=== PATIENT | male | born 1975 | race Caucasian/White ===

== ENCOUNTER 2019-07-01 13:24 | Emergency (ER) | payer SELFPAY ==
[2019-07-01] MEDS ORDERED: CYCLOBENZAPRINE HCL 10 MG TAB PO ONE (13:50)
[2019-07-01] MEDS ORDERED: KETOROLAC TROMETHAMINE INJ 60 MG/2 ML VIAL IM ONE (13:50)
[2019-07-01] MEDS ORDERED: DEXAMETHASONE INJ 10 MG/ML VIAL IM ONE (13:50)
[2019-07-01 13:54] VITALS: TEMP 98.6
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
--- NOTE | 2019-07-01 14:58 | RAD ---
EXAM DESCRIPTION: Lumbar Spine 3 Views CLINICAL HISTORY: 44 years Male, acute Left low back pain, nontraumatic COMPARISON: None available. FINDINGS: Normal lordotic curvature of the lumbar spine is well preserved. The vertebral body heights are well-maintained with no acute compression deformity. Multilevel degenerative disc disease and facet arthropathy, worse at L5-S1 level. Minimal grade 1 anterolisthesis of L5 over S1. Constipation. The visualized prevertebral and paravertebral soft tissues appear grossly unremarkable. IMPRESSION: Multilevel degenerative disc disease and facet arthropathy, worse at L5-S1 level. Minimal grade 1 anterolisthesis of L5 over S1. Electronically signed by: Ligia Barajas MD 07/01/2019 2:57 PM CDT
[2019-07-01 15:59] VITALS: BP 106/59; O2SAT 95
== END 2019-07-01 15:59 | disposition home or self-care (01) ==
LOC: ER 13:24
DX: M51.37 Other intervertebral disc degeneration, lumbosacral region (principal)
CPT/HCPCS: 72100; J1100; J1885